=== PATIENT | female | born 1945 | race Caucasian/White ===

== ENCOUNTER 2021-06-23 10:52 | Outpatient (REF) | payer MEDICARE, SELFPAY ==
--- NOTE | ~2021-06-23 | XR_ITS ---
EXAMINATION: XR SHOULDER , LEFT CLINICAL INFORMATION: Pain COMPARISON: None available at the time of this dictation. TECHNIQUE: AP external rotation, Grashey, scapular Y, and axillary views of the shoulder. FINDINGS: BONES: Mild cephalad migration of the humeral head, There is no fracture or dislocation, no osteolytic or osteoblastic lesion. JOINTS: Glenohumeral joint is properly positioned. AC joint is unremarkable. SOFT TISSUE AND INCLUDED LUNG: Normal. XR/XR shoulder LT min 2V IMPRESSION: Mild cephalad migration of humeral head might be a sequela of underlying soft tissue rotator cuff derangement, MRI could be utilized for further investigation. No fracture or dislocation.
== END 2021-06-23 10:53 | disposition home or self-care (01) ==
LOC: HO.HMGCX 10:52
PROVIDERS: PCP Internal Medicine; Visit Provider Internal Medicine
DX: M25.612 Stiffness of left shoulder, not elsewhere classified (principal); Z20.822 Contact with and (suspected) exposure to COVID-19
CPT/HCPCS: 73030; C9803; U0003; U0005

== ENCOUNTER 2022-03-10 08:46 | Outpatient (REF) | payer MEDICARE, SELFPAY ==
[2022-03-13 20:37] LABS: TS Negative Control Passed; TS Panel A 0; TS Panel B 0; TS Positive Control Passed; TSpotTB Negative (Negative)
== END 2022-03-10 08:47 | disposition home or self-care (01) ==
LOC: HO.HMGCLDS 08:46
PROVIDERS: PCP Internal Medicine; Visit Provider Internal Medicine
DX: Z11.1 Encounter for screening for respiratory tuberculosis (principal)
CPT/HCPCS: 36415; 86481

== ENCOUNTER 2023-07-24 13:33 | Outpatient (REF) | payer MEDICARE, SELFPAY ==
--- NOTE | ~2023-07-24 | XR_ITS ---
EXAMINATION: XR ANKLE, RIGHT CLINICAL INFORMATION: Trauma rule out fracture COMPARISON: None available. TECHNIQUE: AP, lateral, and mortise views of the right ankle. FINDINGS: The bones are diffusely demineralized. No fracture. Alignment is anatomic. No erosions. Joint spaces are maintained. Vascular calcification is noted. Moderate sized posterior plantar calcaneal spur is seen. Calcific density is along the plantar aspect of the calcaneal spur. XR/XR ankle RT min 3V IMPRESSION: No acute bony abnormality.
== END 2023-07-24 13:34 | disposition home or self-care (01) ==
LOC: HO.HMGCX 13:33
PROVIDERS: PCP Internal Medicine; Visit Provider Internal Medicine
DX: S99.911D Unspecified injury of right ankle, subsequent encounter (principal)
CPT/HCPCS: 73610

== ENCOUNTER 2023-09-26 08:05 | Outpatient (RCR) | payer MEDICARE, SELFPAY | END 2024-03-01 10:00 | disposition home or self-care (01) | LOC: HO.WCC 08:05 | PROVIDERS: PCP Internal Medicine; Visit Provider Physician Assistant | DX: E11.622 Type 2 diabetes mellitus with other skin ulcer (principal); E11.51 Type 2 diabetes mellitus with diabetic peripheral angiopathy without gangrene; I87.311 Chronic venous hypertension (idiopathic) with ulcer of right lower extremity; L97.812 Non-pressure chronic ulcer of other part of right lower leg with fat layer exposed; E44.1 Mild protein-calorie malnutrition; I25.2 Old myocardial infarction; Z86.73 Personal history of transient ischemic attack (TIA), and cerebral infarction without residual deficits | CPT/HCPCS: 11042; 97597; 99212 ==

== ENCOUNTER 2024-01-05 08:18 | Outpatient (REF) | payer MEDICARE, SELFPAY ==
--- NOTE | ~2024-01-05 | US_ITS ---
EXAMINATION: US LOWER EXTREMITY (REFLUX EXAM), RIGHT CLINICAL INDICATION: Venous insufficiency and chronic ulcer COMPARISON: None. TECHNIQUE: Color flow triplex imaging and compression Doppler was performed to evaluate both the deep and the superficial systems of the right lower extremity. To evaluate the superficial system, the examination was performed in the upright position. Color-flow Doppler ultrasound and compression ultrasound were utilized. In addition, maneuvers were utilized to demonstrate reflux. FINDINGS: 1. DEEP VENOUS DOPPLER ULTRASOUND: Common Femoral Vein: Compressible, normal respiratory variation and augmented flow. Femoral Vein: Compressible, normal color flow and augmentation. Popliteal Vein: Compressible, normal augmentation. Deep Reflux: There is no evidence of reflux in the deep system in either the common femoral vein or the popliteal vein. There is no evidence of a Smith's cyst. 2. SUPERFICIAL VENOUS DOPPLER ULTRASOUND: GREAT SAPHENOUS VEIN: Saphenofemoral Junction: 0.5 cm; Reflux: 0 ms Proximal Thigh: 0.6 cm; Reflux: 0 ms Mid Thigh: 0.3 cm; Reflux: 0 ms Above Knee: 0.3 cm; Reflux: 0 ms At Knee: 0.3 cm; Reflux: 0 ms Below Knee: 0.3 cm; Reflux: 0 ms Mid Calf: 0.2 cm; Reflux: 0 ms Ankle: 0.3 cm; Reflux: 0 ms DUPLICATED MEDIAL GREAT SAPHENOUS VEIN: Diameter: None Imaged Reflux: NA DUPLICATED LATERAL GREAT SAPHENOUS VEIN: Diameter: None Imaged Reflux: NA SMALL SAPHENOUS VEIN: Proximal: 0.4 cm; Reflux: 0 ms Distal: 0.3 cm; Reflux: 0 ms Wall adherent, chronic appearing thrombus within the proximal and distal small saphenous vein. VEIN OF GIACOMINI: None Imaged. PERFORATORS: Location: None Imaged Size: NA Reflux: NA VARICOSITIES: Location: None Imaged Size: NA Reflux: NA Prominent inguinal lymph node measuring 1.5 x 0.9 x 1 cm. US/US venous duplex LE RT IMPRESSION: No reflux in the great saphenous vein or small saphenous vein. Nonocclusive chronic appearing thrombus within the small saphenous vein.
== END 2024-01-05 08:19 | disposition home or self-care (01) ==
LOC: HO.US 08:18
PROVIDERS: PCP Family Medicine; Visit Provider Physician Assistant
DX: I87.2 Venous insufficiency (chronic) (peripheral) (principal); L97.812 Non-pressure chronic ulcer of other part of right lower leg with fat layer exposed
CPT/HCPCS: 93971

== ENCOUNTER 2024-02-06 14:45 | Outpatient (REF) | payer MEDICARE, SELFPAY ==
--- NOTE | ~2024-02-06 | US_ITS ---
EXAMINATION: US SAMARA complete, US arterial duplex LE RT CLINICAL INFORMATION: NON PRESSURE CHRONIC ULCER OF OTHER PARTS , PVD COMPARISON: None TECHNIQUE: Ankle pulse volume recordings, ankle pressure measurements and ankle brachial indices were obtained of the lower extremity arterial system bilaterally in addition to duplex Doppler techniques with wave form analysis and measurement of velocities in the common femoral, profunda femoral, superficial femoral, popliteal, tibial and peroneal arteries. The study was performed only at rest. FINDINGS: RIGHT LEG: THE RIGHT ANKLE-BRACHIAL INDEX IS: Patient unable to tolerate lower extremity compression DIRECT DUPLEX: Common femoral artery: 152 cm/s, biphasic Profunda femoris artery: 65 cm/s, biphasic Superficial femoral artery (proximal): 110 cm/s, biphasic Superficial femoral artery (mid): 110 cm/s, biphasic Superficial femoral artery (distal): 86 cm/s, Multiphasic Distal Popliteal artery: 119 cm/s, Multiphasic Distal posterior tibial artery: 102 cm/s, Multiphasic Peroneal artery: 31 cm/s, monophasic Dorsalis pedis artery: 94 cm/sec, triphasic Anterior tibial artery: 81 cm/sec, triphasic LEFT LEG: THE LEFT ANKLE-BRACHIAL INDEX IS: Patient unable to tolerate lower extremity compression US/US SAMARA complete IMPRESSION: RIGHT LEG: SAMARA could not be calculated due to patient's inability to tolerate compression. No evidence for hemodynamically significant stenosis in the right lower extremity. LEFT LEG: SAMARA could not be calculated.
--- NOTE | ~2024-02-06 | US_ITS ---
EXAMINATION: US SAMARA complete, US arterial duplex LE RT CLINICAL INFORMATION: NON PRESSURE CHRONIC ULCER OF OTHER PARTS , PVD COMPARISON: None TECHNIQUE: Ankle pulse volume recordings, ankle pressure measurements and ankle brachial indices were obtained of the lower extremity arterial system bilaterally in addition to duplex Doppler techniques with wave form analysis and measurement of velocities in the common femoral, profunda femoral, superficial femoral, popliteal, tibial and peroneal arteries. The study was performed only at rest. FINDINGS: RIGHT LEG: THE RIGHT ANKLE-BRACHIAL INDEX IS: Patient unable to tolerate lower extremity compression DIRECT DUPLEX: Common femoral artery: 152 cm/s, biphasic Profunda femoris artery: 65 cm/s, biphasic Superficial femoral artery (proximal): 110 cm/s, biphasic Superficial femoral artery (mid): 110 cm/s, biphasic Superficial femoral artery (distal): 86 cm/s, Multiphasic Distal Popliteal artery: 119 cm/s, Multiphasic Distal posterior tibial artery: 102 cm/s, Multiphasic Peroneal artery: 31 cm/s, monophasic Dorsalis pedis artery: 94 cm/sec, triphasic Anterior tibial artery: 81 cm/sec, triphasic LEFT LEG: THE LEFT ANKLE-BRACHIAL INDEX IS: Patient unable to tolerate lower extremity compression US/US arterial duplex LE RT IMPRESSION: RIGHT LEG: SAMARA could not be calculated due to patient's inability to tolerate compression. No evidence for hemodynamically significant stenosis in the right lower extremity. LEFT LEG: SAMARA could not be calculated.
[2024-02-06 16:26] LABS: MANUAL DIFF FLAG NO
[2024-02-06 17:38] LABS: Basophils Absolute Auto 0.1 X10*3/uL (0.0-0.2); Basophils Percent Auto 0.8 % (0-2); Eosinophils Absolute Auto 0.2 X10*3/uL (0.0-0.4); Eosinophils Percent Auto 2.6 % (0-4); Hemoglobin 11.9 g/dl (12.0-16.0); Imm Gran Abs Auto 0.01 X10*3/uL (0.00-0.03); Imm Gran Pct Auto 0.2 % (0.0-0.4); Lymphocytes Absolute Auto 1.8 X10*3/uL (1.2-4.9); Lymphocytes Percent Auto 27.3 % (20-40); Mean Corpuscular HGB Conc 32.2 g/dl (31.0-35.0); Mean Corpuscular Hemoglobin 28.6 pg (27.0-33.0); Mean Corpuscular Volume 88.9 fL (80.0-98.0); Mean Platelet Volume 9.7 fL (9.4-12.3); Monocytes Absolute Auto 0.6 X10*3/uL (0.1-1.2); Monocytes Percent Auto 8.3 % (2-11); Neutrophils Absolute Auto 4.1 x10*3/uL (2.0-8.3); Neutrophils Percent Auto 60.8 % (45-73); Platelet Count 214 X10*3/uL (160-400); Red Blood Count 4.16 X10*6/uL (4.20-5.50); White Blood Count 6.6 X10*3/uL (4.8-10.8)
[2024-02-06 18:18] LABS: Anion Gap 14 (12-20); Blood Urea Nitrogen 22 mg/dL (9-16); C Reactive Protein < 0.10 mg/dL (< or = 0.50); Calcium 9.9 mg/dL (8.4-10.2); Carbon Dioxide 26 mmol/L (22-29); Chloride 109 mmol/L (96-108); Estimated Glomerular Filt Rate > 60; Glucose Random 64 mg/dL (60-115); Potassium 4.2 mmol/L (3.3-5.1); Sodium 145 mmol/L (135-145)
[2024-02-06 18:38] LABS: Erythrocyte Sedimentation Rate 13 MM/HR (0-20)
== END 2024-02-06 14:46 | disposition home or self-care (01) ==
LOC: HO.US 14:45
PROVIDERS: Absent Provider Physician Assistant; PCP Family Medicine; Visit Provider Physician Assistant
DX: L97.812 Non-pressure chronic ulcer of other part of right lower leg with fat layer exposed (principal); I73.9 Peripheral vascular disease, unspecified
CPT/HCPCS: 36415; 80048; 84134; 85025; 85652; 86140; 93923; 93926